=== PATIENT | male | born 1935 | race Caucasian/White ===

== ENCOUNTER → 2016-09-16 | Outpatient (CLI) | payer OTHER, MEDICARE ==
[~2016-09-16] VITALS: Ht 182.9 cm; Wt 69.4 kg
[~2016-09-16] MED LIST: ADULT LOW DOSE81 MG PO; ALBAFORT325 MG PO; CENTRUM SILVER1 EAC1 PO; COZAAR 25 MG TA25 MG PO; ELIQUIS5 MG PO; IMURAN 50MG TAB50 M1 PO; LASIX 20 MG TAB20 MG PO; LIPITOR40 MG PO; LOPRESSOR50 PO; NASONEX; NEILMED SINUS RINSE; PRILOSEC40 MG PO; PROTONIX40 M1 PO; VITAMIN C + RO500 MG PO; VITAMIN E 400I400 I1 PO; ZINC CHELATE50 MG PO
--- NOTE | ~2016-09-16 | S ---
[facility] [place] [address] SURGICAL PATH RPT PROCEDURE Name: KELVINRAINERKIT Room #: REG CLI M.R.#: [id number] Admission: 09/16/16 Date of : 39 Discharge: Report #: [id number] Path Case #: [id number] PATHOLOGY REPORT COLLECTION DATE: 09/16/2016 RECEIVED DATE: 09/16/2016 SUBMITTING PHYS: Dr. Dewayne Mary OTHER PHYS: Dr. Balbir Contreras SPECIMEN(S) RECEIVED: A.Bx polyp mid transverse * * * * * * * * * * * * FINAL DIAGNOSIS: Polyp, mid transverse polyp, endoscopic biopsy: - Tubular adenoma. - Negative for high-grade dysplasia. (IUV:mgr; d/t: 09/17/16) PATHOLOGIST: Nathalie Odell M.D. REPORT ELECTRONICALLY SIGNED BY: Nathalie Odell M.D. DATE/TIME: 09/17/2016 16:27 * * * * * * * * * * * * GROSS PATHOLOGY: Received in formalin labeled "KelvinrainerKit and bx mid transverse polyp," is a segment of boo soft tissue measuring 0.3 cm in maximum dimension. The specimen is submitted entirely in cassette A1. (TTL; 09/16/2016) CLINICAL HISTORY: Pre-op diagnosis: History of polyps Post-op diagnosis: Polyp mid transverse INITIAL CPT CODE(S): A; 90494 Professional services performed by [facility] at [facility] [address] [place] [address] Technical services performed by [facility] at [address] [place] [address], [address] [address]. [facility] [address] [place] [address] SURGICAL PATH RPT PROCEDURE Name: KIT MCBRIDE GRATIOT Room #: REG ANASTASIA Coy#: [id number] Admission: 09/16/16 Date of : 39 Discharge: Report #: [id number] Path Case #: [id number] [facility] [address] [address] PHONE: [phone] DIRECTOR: Nain Jang M.D. * * * END OF REPORT * * *
--- NOTE | ~2016-09-16 | P ---
[facility] [place] [address] PROCEDURE REPORT Name: KIT MCBRIDE [id number] Admission: 09/16/16 Attend Phys: Dewayne Mary MD Discharge: Date of : 39 Report #: [id number] THIS REPORT FOR: //name// CC: Dewayne Contreras MD BRIEF HISTORY: The patient is a 80-year-old male with history of multiple colon adenomas. He has had lifetime adenomas. PREOPERATIVE DIAGNOSIS: High risk screening colonoscopy due to history of multiple adenomas. POSTOPERATIVE DIAGNOSES: 1. Diminutive polyp, mid transverse colon. 2. Moderately severe sigmoid diverticulosis coli. MEDICATIONS: Deep sedation with propofol per anesthesia. SPECIMEN: Polyp from mid transverse colon. ESTIMATED BLOOD LOSS: 3 mL. PROCEDURE: Colonoscopy to cecum and terminal ileum with biopsy. FINDINGS: Prior to propofol sedation, procedure of colonoscopy discussed with the patient as well as potential risks, benefits, and complications. He indicates he understands and desires to proceed. With the patient in left lateral decubitus position, digital examination was completed which revealed no abnormalities. Subsequently, the CONSTRVCT video colonoscope was introduced into the rectum, advanced under direct vision to the cecum. Done with minimal difficulty. The cecum was identified by the ileocecal valve and the appendiceal orifice. I was able to visualize the distal segment of terminal ileum, which was inspected and noted to be unremarkable. At that point, the scope was slowly withdrawn and careful circumferential views obtained including retroflexing the scope in the ascending colon. Upon slow withdrawal of the scope, the prep was noted to be excellent. The mucosa was within normal limits, normal vascular pattern, and normal light reflex. As we withdrew the scope, no mucosal abnormalities were seen until we reached the mid transverse colon, at which point a diminutive polyp was seen and removed by biopsy. Scope was further withdrawn and no additional polyps were seen. The mucosa was normal throughout the remainder of the colon. However, in the sigmoid colon, there was moderately severe diverticular disease without endoscopic evidence of diverticulitis. The scope was withdrawn in the rectum. Upon retroflexion, no abnormalities were seen. Scope was withdrawn. The patient tolerated the procedure well. [address] [address] PROCEDURE REPORT Name: KIT MCBRIDE [id number] Admission: 09/16/16 Attend Phys: Dewayne Mary MD Discharge: Date of : 39 Report #: [id number] CONDITION OF THE PATIENT UPON DISCHARGE: Following procedure, the patient drowsy, aroused, conversant and will be discharged home when fully ambulatory. INSTRUCTIONS TO THE PATIENT AND FAMILY AT THE TIME OF DISCHARGE: We will follow up on the path of the polyp. Due to his history of multiple adenomas, I would have him return in 3 years for a high risk screening colonoscopy. The patient takes Eliquis, which has been held for 2 days, he may resume the Eliquis today. He will return to care of Dr. Balbir Contreras and return to see me as needed. Last colonoscopy was 2 years ago. Withdrawal time from the cecum was 16 minutes. <ELECTRONICALLY SIGNED> By: Dewayne Mary MD 09/17/16 1714 1114 1419 Dewayne Mary MD /nt
== END ==
LOC: GI 09:03
DX: Z12.11 Encounter for screening for malignant neoplasm of colon (principal); D12.3 Benign neoplasm of transverse colon; K57.30 Diverticulosis of large intestine without perforation or abscess without bleeding; J45.909 Unspecified asthma, uncomplicated; I10 Essential (primary) hypertension; G47.33 Obstructive sleep apnea (adult) (pediatric); Z87.891 Personal history of nicotine dependence; K21.9 Gastro-esophageal reflux disease without esophagitis; Z85.51 Personal history of malignant neoplasm of bladder
CPT/HCPCS: 62110; 62900

== ENCOUNTER → 2017-06-21 | Outpatient (CLI) | payer OTHER, MEDICARE | LOC: RAD 12:41 | DX: R05 Cough (principal) ==

== ENCOUNTER → 2017-07-05 | Outpatient (CLI) | payer OTHER, MEDICARE | LOC: RAD 13:48 | DX: J44.9 Chronic obstructive pulmonary disease, unspecified (principal); J18.9 Pneumonia, unspecified organism; M47.894 Other spondylosis, thoracic region; R91.8 Other nonspecific abnormal finding of lung field ==

== ENCOUNTER → 2017-08-31 | Outpatient (CLI) | payer OTHER, MEDICARE | END | disposition home or self-care (01) | LOC: GI 06:59 | DX: K55.20 Angiodysplasia of colon without hemorrhage (principal); I10 Essential (primary) hypertension; Z86.010 Personal history of colon polyps; Z87.891 Personal history of nicotine dependence; Z79.899 Other long term (current) drug therapy; Z98.890 Other specified postprocedural states; Z79.82 Long term (current) use of aspirin ==

== ENCOUNTER → 2021-05-04 | Outpatient (CLI) | payer OTHER, MEDICARE | LOC: RAD 13:59 | PROVIDERS: ATTEND Internal Medicine | DX: J90 Pleural effusion, not elsewhere classified (principal); J44.9 Chronic obstructive pulmonary disease, unspecified; R06.02 Shortness of breath; R91.8 Other nonspecific abnormal finding of lung field ==